=== PATIENT | male | born 1960 | race Caucasian/White ===

== ENCOUNTER → 2017-04-28 | Outpatient (REF) | payer BC ==
[2017-04-28 10:51] LABS: MEAN CORPUSCULAR HEMOGLOBIN 29.2 pg (27.0-33.0); MEAN CORPUSCULAR HGB CONC 33.6 g/dl (32.0-36.5); MEAN CORPUSCULAR VOLUME 86.9 fl (80.0-96.0); PLATELET COUNT, AUTOMATED 177 10^3/uL (150-450); WHITE BLOOD COUNT 6.6 10^3/uL (4.0-10.0)
[2017-04-28 11:14] LABS: ALBUMIN 4.2 GM/DL (3.2-5.2); ALBUMIN/GLOBULIN RATIO 1.35 (1.00-1.93); ALKALINE PHOSPHATASE 59 U/L (45-117); ALT/SGPT 31 U/L (12-78); ANION GAP 7 MEQ/L (8-16); AST/SGOT 16 U/L (7-37); BILIRUBIN,TOTAL 1.8 MG/DL (0.2-1.0); BLOOD UREA NITROGEN 19 MG/DL (7-18); CALCIUM LEVEL 9.3 MG/DL (8.5-10.1); CARBON DIOXIDE LEVEL 28 MEQ/L (21-32); CHLORIDE LEVEL 107 MEQ/L (98-107); CHOLESTEROL LEVEL 157 MG/DL (<200); CREATININE FOR GFR 0.95 MG/DL (0.70-1.30); GLOMERULAR FILTRATION RATE > 60.0 (>56); GLUCOSE, FASTING 91 MG/DL (70-105); POTASSIUM SERUM 3.8 MEQ/L (3.5-5.1); SODIUM LEVEL 142 MEQ/L (136-145); TOTAL PROTEIN 7.3 GM/DL (6.4-8.2); TRIGLYCERIDES LEVEL 69 MG/DL (<150); URIC ACID 6.7 MG/DL (3.5-7.2)
== END ==
LOC: M SFHCPLAZ 09:40
PROVIDERS: ATTEND Internal Medicine
DX: Z79.899 Other long term (current) drug therapy (principal); E78.00 Pure hypercholesterolemia, unspecified; M10.9 Gout, unspecified

== ENCOUNTER 2018-01-06 07:12 | Day surgery (SDC) | payer BC ==
[2018-01-06] MEDS: NS 1,000 ML IV (07:25)
[2018-01-06] MEDS ORDERED: LIDOCAINE 2% INJ 100 MG/5 ML SDV (FOR ANES.) As Ordered (07:44)
[2018-01-06] MEDS ORDERED: PROPOFOL 200 MG/20 ML VIAL As Ordered (07:44)
== END 2018-01-06 08:52 | disposition home or self-care (01) ==
LOC: M OPP 07:12
DX: Z12.11 Encounter for screening for malignant neoplasm of colon (principal); Z86.010 Personal history of colon polyps; K64.0 First degree hemorrhoids; E78.5 Hyperlipidemia, unspecified; M10.9 Gout, unspecified; Z87.442 Personal history of urinary calculi; Z79.899 Other long term (current) drug therapy; Z80.9 Family history of malignant neoplasm, unspecified
CPT/HCPCS: G0105

== ENCOUNTER → 2018-05-04 | Outpatient (REF) | payer BC ==
[2018-05-04 11:01] LABS: HEMATOCRIT 43.8 % (42.0-52.0); HEMOGLOBIN 15.1 g/dl (13.5-17.5); MEAN CORPUSCULAR HEMOGLOBIN 30.1 pg (27.0-33.0); MEAN CORPUSCULAR HGB CONC 34.5 g/dl (32.0-36.5); MEAN CORPUSCULAR VOLUME 87.4 fl (80.0-96.0); PLATELET COUNT, AUTOMATED 163 10^3/uL (150-450); RED BLOOD COUNT 5.01 10^6/uL (4.30-6.10); RED CELL DISTRIBUTION WIDTH 12.6 % (11.5-14.5); WHITE BLOOD COUNT 5.1 10^3/uL (4.0-10.0)
[2018-05-04 11:28] LABS: ALBUMIN 3.7 GM/DL (3.2-5.2); ALBUMIN/GLOBULIN RATIO 1.09 (1.00-1.93); ALKALINE PHOSPHATASE 55 U/L (45-117); ALT/SGPT 32 U/L (12-78); ANION GAP 9 MEQ/L (8-16); AST/SGOT 19 U/L (7-37); BILIRUBIN,TOTAL 0.5 MG/DL (0.2-1.0); BLOOD UREA NITROGEN 20 MG/DL (7-18); CALCIUM LEVEL 8.5 MG/DL (8.5-10.1); CARBON DIOXIDE LEVEL 25 MEQ/L (21-32); CHLORIDE LEVEL 108 MEQ/L (98-107); CHOLESTEROL LEVEL 189 MG/DL (<200); CHOLESTEROL RISK RATIO 3.436 (<5); CREATININE FOR GFR 0.93 MG/DL (0.70-1.30); GLOMERULAR FILTRATION RATE > 60.0 (>56); GLUCOSE, FASTING 91 MG/DL (70-100); HDL CHOLESTEROL 55 MG/DL (>40); LDL CHOLESTEROL 98 MG/DL (<100); NON-HDL-C 134 MG/DL; PSA SCREENING 4.7 NG/ML (< 4.0); SODIUM LEVEL 142 MEQ/L (136-145); TOTAL PROTEIN 7.1 GM/DL (6.4-8.2); TRIGLYCERIDES LEVEL 179 MG/DL (<150); URIC ACID 6.7 MG/DL (3.5-7.2)
[2018-05-04 11:34] LABS: APPEARANCE, URINE CLEAR (CLEAR); BACTERIA, URINE AUTO NEGATIVE (NEGATIVE); BILIRUBIN, URINE AUTO NEGATIVE (NEGATIVE); BLOOD, URINE BLOOD NEGATIVE (NEGATIVE); CALCIUM OXALATE CRYSTALS SMALL; COLOR, URINE YELLOW (YELLOW); GLUCOSE, URINE (UA) AUTO NEGATIVE (NEGATIVE); KETONE, URINE AUTO NEGATIVE (NEGATIVE); LEUKOCYTE ESTERASE, URINE AUTO NEGATIVE (NEGATIVE); MUCUS, URINE SMALL (NEGATIVE); NITRITE, URINE AUTO NEGATIVE (NEGATIVE); PROTEIN, URINE AUTO NEGATIVE (NEGATIVE); RBC, URINE AUTO 2 /HPF (0-3); SPECIFIC GRAVITY URINE AUTO 1.029 (1.002-1.035); SQUAMOUS EPITHELIAL CELL UR AU 0 /HPF (0-6); UROBILINOGEN, URINE AUTO 0.2 mg/dL (0.0-2.0); WBC, URINE AUTO 3 /HPF (0-3)
== END ==
LOC: M SFHCPLAZ 09:31
DX: Z00.00 Encounter for general adult medical examination without abnormal findings (principal); Z51.81 Encounter for therapeutic drug level monitoring; Z79.899 Other long term (current) drug therapy; E78.00 Pure hypercholesterolemia, unspecified; M10.9 Gout, unspecified; Z87.448 Personal history of other diseases of urinary system; Z12.5 Encounter for screening for malignant neoplasm of prostate; Z86.010 Personal history of colon polyps
CPT/HCPCS: 84550

== ENCOUNTER → 2019-01-13 | Outpatient (CLI) | payer BC ==
[~2019-01-13] MED LIST: CIPR-249 PO; FLOM0.4C39 PO; HYDR-3713 PO; IBUP-1022 PO; MELO15TA28 PO; OXYB5TAB10 PO; PRAV80TA2 PO
[2019-01-13 13:38] LABS: BLOOD UREA NITROGEN 15 MG/DL (7-18); CARBON DIOXIDE LEVEL 30 MEQ/L (21-32); CHLORIDE LEVEL 108 MEQ/L (98-107); CREATININE FOR GFR 0.95 MG/DL (0.70-1.30); GLOMERULAR FILTRATION RATE > 60.0 (>56); GLUCOSE, FASTING 88 MG/DL (70-100); POTASSIUM SERUM 4.1 MEQ/L (3.5-5.1); SODIUM LEVEL 142 MEQ/L (136-145)
[2019-01-13 13:38] LABS: APPEARANCE, URINE CLEAR (CLEAR); BACTERIA, URINE AUTO NEGATIVE (NEGATIVE); BILIRUBIN, URINE AUTO NEGATIVE (NEGATIVE); BLOOD, URINE BLOOD 1+ (NEGATIVE); COLOR, URINE YELLOW (YELLOW); GLUCOSE, URINE (UA) AUTO NEGATIVE (NEGATIVE); KETONE, URINE AUTO NEGATIVE (NEGATIVE); LEUKOCYTE ESTERASE, URINE AUTO NEGATIVE (NEGATIVE); MUCUS, URINE SMALL (NEGATIVE); NITRITE, URINE AUTO NEGATIVE (NEGATIVE); PROTEIN, URINE AUTO NEGATIVE (NEGATIVE); RBC, URINE AUTO 1 /HPF (0-3); SPECIFIC GRAVITY URINE AUTO 1.024 (1.002-1.035); SQUAMOUS EPITHELIAL CELL UR AU 0 /HPF (0-6); UROBILINOGEN, URINE AUTO 0.2 mg/dL (0.0-2.0); WBC, URINE AUTO 4 /HPF (0-3)
[2019-01-14 15:47] LABS: PSA % FREE 20.5 % (.); PSA FREE 0.88 ng/mL; PSA TOTAL 4.3 ng/mL (0.0-4.0)
== END ==
LOC: M SMT 10:47
PROVIDERS: ATTEND Nurse Practitioner Family
DX: R97.20 Elevated prostate specific antigen [PSA] (principal); N20.0 Calculus of kidney; R31.0 Gross hematuria

== ENCOUNTER → 2019-01-25 | Outpatient (CLI) | payer BC ==
[~2019-01-25] MED LIST changes: -CIPR-249 PO; +ISOVUE-370 76% 100ML VIAL (Q9967) As Ordered ONE; -OXYB5TAB10 PO
--- NOTE | 2019-01-25 10:16 | REP ---
CT of the abdomen pelvis without and with IV contrast, without bowel contrast, CT urogram protocol: Comparison is 10/29/2017. On the comparison study there were two bladder calculi, one posteriorly in the midline 11 mm and the other near the left UVJ measuring 6 mm. These calculi are not identified on the study today, however, on the study today there is a 17 mm calculus with irregular margins posteriorly in the dome of the bladder on the left. There are no ureteral calculi. There is a tiny two mm a nonobstructive left renal calculus at the mid pole on image 57, similar to the prior study. There are no right renal calculi. There is a Bosniak type 1 right renal cyst measuring 17 mm anteriorly at the mid pole. This measured 15 mm previously. There are no solid renal masses. There is no hydronephrosis. The previous left hydronephrosis has resolved. The visualized lung bradshaw are unremarkable. The hepatic parenchyma, gallbladder, pancreas, spleen, adrenals, and abdominal aorta are unremarkable. There is no periaortic adenopathy or mass. There is no bowel distension or obstruction. The mesentery is unremarkable. There is wall thickening of the distal transverse colon and descending colon. This is compatible with colitis in the appropriate clinical setting. Pelvis: The patient reportedly has an appendectomy. The prostate appears enlarged. There is no pelvic adenopathy or ascites. Impression: There is a bladder calculus as described. There are no ureteral calculi. There is a tiny nonobstructive left renal calculus, unchanged. There is no hydronephrosis. There is a Bosniak type 1 right renal cyst, unchanged. No solid renal masses are identified. The prostate appears enlarged. There are findings compatible with colitis in the distal transverse colon and descending colon in the appropriate clinical setting. Electronically Signed by Miko Meredith MD 01/25/2019 10:08 A
== END ==
LOC: M RAD 07:18
PROVIDERS: ATTEND Nurse Practitioner Family
DX: N20.0 Calculus of kidney (principal); R31.0 Gross hematuria; N21.0 Calculus in bladder; N28.1 Cyst of kidney, acquired
CPT/HCPCS: 74178; Q9967

== ENCOUNTER → 2019-04-12 | Outpatient (CLI) | payer BC ==
[~2019-04-12] MED LIST changes: -ISOVUE-370 76% 100ML VIAL (Q9967) As Ordered ONE
[2019-04-12 10:37] LABS: APPEARANCE, URINE CLEAR (CLEAR); BACTERIA, URINE AUTO NEGATIVE (NEGATIVE); BASO % 0.6 % (0.0-1.0); BILIRUBIN, URINE AUTO NEGATIVE (NEGATIVE); BLOOD, URINE BLOOD NEGATIVE (NEGATIVE); COLOR, URINE YELLOW (YELLOW); EOS # 0.2 10^3/uL (0.0-0.5); EOS % 3.5 % (0.0-3.0); GLUCOSE, URINE (UA) AUTO NEGATIVE (NEGATIVE); HEMATOCRIT 46.3 % (42.0-52.0); HEMOGLOBIN 15.3 g/dl (13.5-17.5); KETONE, URINE AUTO NEGATIVE (NEGATIVE); LEUKOCYTE ESTERASE, URINE AUTO NEGATIVE (NEGATIVE); LYMPH # 1.5 10^3/uL (1.5-5.0); LYMPH % 30.2 % (24.0-44.0); MEAN CORPUSCULAR HEMOGLOBIN 29.8 pg (27.0-33.0); MEAN CORPUSCULAR VOLUME 90.1 fl (80.0-96.0); MONO # 0.4 10^3/uL (0.0-0.8); MONO % 8.9 % (0.0-5.0); MUCUS, URINE SMALL (NEGATIVE); NEUTROPHILS # 2.7 10^3/uL (1.5-8.5); NEUTROPHILS % 56.4 % (36.0-66.0); NITRITE, URINE AUTO NEGATIVE (NEGATIVE); PLATELET COUNT, AUTOMATED 158 10^3/uL (150-450); PROTEIN, URINE AUTO NEGATIVE (NEGATIVE); RBC, URINE AUTO 2 /HPF (0-3); RED BLOOD COUNT 5.14 10^6/uL (4.30-6.10); SPECIFIC GRAVITY URINE AUTO 1.021 (1.002-1.035); SQUAMOUS EPITHELIAL CELL UR AU 0 /HPF (0-6); UROBILINOGEN, URINE AUTO 0.2 mg/dL (0.0-2.0); WBC, URINE AUTO 0 /HPF (0-3); WHITE BLOOD COUNT 4.8 10^3/uL (4.0-10.0)
[2019-04-12 10:47] LABS: INR 1.01
[2019-04-12 10:48] LABS: PARTIAL THROMBOPLASTIN TIME 33.4 SECONDS (25.0-38.4)
[2019-04-12 11:01] LABS: BLOOD UREA NITROGEN 17 MG/DL (7-18); CALCIUM LEVEL 8.9 MG/DL (8.5-10.1); CARBON DIOXIDE LEVEL 29 MEQ/L (21-32); CHLORIDE LEVEL 107 MEQ/L (98-107); CREATININE FOR GFR 0.95 MG/DL (0.70-1.30); GLOMERULAR FILTRATION RATE > 60.0 (>56); GLUCOSE, FASTING 85 MG/DL (70-100); SODIUM LEVEL 144 MEQ/L (136-145)
--- NOTE | 2019-04-12 11:03 | REP ---
Two-view chest: New 04/12/2019. Indication: Dyspnea. Comparison: None. Findings: The lungs are clear. There is no pleural effusion or pneumothorax. The cardiomediastinal silhouette is unremarkable. Very minimal dextroscoliosis of the thoracic spine is present which is likely positional. Impression: No acute cardiopulmonary process. Electronically Signed by Cristóbal Leahy DO 04/12/2019 10:55 A
--- NOTE | 2019-04-12 22:12 | ECGEPIP ---
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
== END ==
LOC: M LAB 09:48
PROVIDERS: ATTEND Urology
DX: R31.0 Gross hematuria (principal)

== ENCOUNTER 2019-04-20 10:41 | Day surgery (SDC) | payer BC ==
[~2019-04-20] VITALS: Ht 180.3 cm; Wt 96.7 kg
[~2019-04-20 10:41] MED LIST changes: +GENTAMICIN 100 MG in IV 1 EA IV ONE; +LR 1,000 ML IV ONE
[2019-04-20] MEDS ORDERED: LIDOCAINE 2% INJ 100 MG/5 ML SDV (FOR ANES.) As Ordered ONE (11:58)
[2019-04-20] MEDS ORDERED: PROPOFOL 200 MG/20 ML VIAL As Ordered ONE (11:58)
[2019-04-20] MEDS ORDERED: ONDANSETRON 4MG/2ML VIAL (J2405) As Ordered ONE (11:58)
[2019-04-20] MEDS ORDERED: dexameTHASONE 4 MG/ML 1ML VIAL (J1100) As Ordered ONE (11:58)
[2019-04-20] MEDS ORDERED: fentaNYL 100 MCG/2 ML INJECTION (J3010) As Ordered ONE (11:58)
[2019-04-20] MEDS ORDERED: MIDAZOLAM INJ 2 MG/2 ML VIAL (J2250) As Ordered ONE (11:59)
[2019-04-20] MEDS ORDERED: KETOROLAC 60 MG/2 ML VIAL (J1885) As Ordered ONE (13:45)
[2019-04-20] MEDS ORDERED: ACETAMINOPHEN 1000MG 100ML IV BTL (OFIRMEV) (J0131 PER 10MG) As Ordered ONE (13:46)
[2019-04-20] MEDS ORDERED: FUROSEMIDE 100 MG/10 ML VIAL (J1940) As Ordered ONE (13:52)
[2019-04-20] MEDS ORDERED: fentaNYL 100 MCG/2 ML INJECTION (J3010) IV PRN (14:15)
[2019-04-20] MEDS ORDERED: PERCOCET 5MG/325MG TAB PO PRN (14:15)
[2019-04-20] MEDS ORDERED: LR 1,000 ML IV SCH (14:15)
[2019-04-20] MEDS ORDERED: ONDANSETRON 4MG/2ML VIAL (J2405) IV PRN ×2 (14:15→19:00)
[2019-04-20] MEDS ORDERED: HYDROMORPHONE HCL 0.5 MG/ 0.5 ML SYRINGE (J1170 PER 1) IV PRN (14:15)
[2019-04-20] MEDS ORDERED: ACETAMINOPHEN TAB 650MG DOSE (2X325MG) PO PRN ×2 (15:15→19:00)
--- NOTE | 2019-04-20 15:21 | RO ---
DATE OF PROCEDURE: 04/20/2019 PREOPERATIVE DIAGNOSIS: Bladder stone. POSTOPERATIVE DIAGNOSIS: Bladder stone. OPERATIVE PROCEDURE: Cystoscopy, laser cystolitholapaxy. SURGEON: Giles Elias MD E COMMERCE MANAGER: None. ANESTHESIA: General. OPERATIVE INDICATIONS: This is a 58-year-old male who was found to have a large angel bladder stone on recent office cystoscopy. He was brought to the operating room today for treatment. DESCRIPTION OF OPERATION: The patient was brought to the operating room and general anesthesia was induced. Prophylactic antibiotics were infused. He was then placed in the dorsal lithotomy position and prepped and draped in the usual sterile fashion. At this point, a resectoscope was inserted into the urethral meatus and advanced to the bladder using the visual obturator. Once inside the bladder of note the patient had a very large prostate with a large median lobe. Also there was an approximately 4 cm angel bladder stone. I then utilized a 1000 micron laser fiber to fragment the stone into several smaller pieces. Once this stone was completely fragmented, I used an [employer] evacuator to evacuate all the stone fragments from the bladder. After confirming all the fragments had been removed, the resectoscope was taken out and then an #18-Malay Lee catheter was inserted into the bladder. The balloon was filled with 10 mL of sterile water and the catheter was connected to gravity drainage. This marked the conclusion of the procedure. The patient was then taken out of the dorsal lithotomy position, awakened from anesthesia and transported to the recovery room in stable condition. ESTIMATED BLOOD LOSS: 10 mL. COMPLICATIONS: None. SPECIMENS: Bladder stone fragments. PLAN: The patient will have his catheter removed before he goes home. He will followup in clinic in a few weeks for postoperative visit. Also of note the patient has an elevated PSA which I suspect is related to his large stone. We should recheck his PSA in 6 weeks to see if it is going down to normal range now that the stone is gone. RHEA
[2019-04-20] MEDS ORDERED: LIDOCAINE 2% 5ML JELLY UROJET As Ordered ONE (18:09)
[2019-04-20] MEDS ORDERED: PERCOCET 5MG/325MG TAB As Ordered ONE (18:10)
[2019-04-20] MEDS ORDERED: PERCOCET 5MG/325MG TAB PO ONE (18:45)
[2019-04-20] MEDS ORDERED: NS 1,000 ML IV SCH (18:54)
[2019-04-20 20:00] VITALS: BP 154/96
[2019-04-20 21:00] VITALS: BP 134/70
[2019-04-20] MEDS ORDERED: TAMSULOSIN 0.4 MG CAP PO SCH (21:00)
[2019-04-20] MEDS ORDERED: PRAVASTATIN 20 MG TAB PO SCH (21:00)
[2019-04-20 22:00] VITALS: BP 124/74
[2019-04-20 23:00] VITALS: BP 124/61
[2019-04-21] VITALS: BP 133/64
[2019-04-21 06:00] VITALS: BP 140/85
[2019-04-21] MEDS ORDERED: CIPROFLOXACIN 500 MG TAB PO SCH (06:00)
--- NOTE | 2019-04-21 08:27 | IPNPDOC ---
Subjective Review oF Systems Chief Complaint The patient is a 58-year-old male admitted with a reason for visit of Elevated Prostate Specific Antigen, Bladder Stone. Events since Last Encounter No acute events o/n. Denies pain. His catheter drained fine o/n. No f/c/ns. Objective Physical Examination General Exam: Alert, Cooperative, No Acute Distress ABDOMEN EXAM: Soft Psych Exam: Mental status NL, Mood NL Other physical findings catheter draining pink urine Vital Signs/I&O Vital Signs Date Time Temp Pulse Resp B/P (MAP) Pulse Ox O2 Delivery O2 Flow Rate FiO2 04/21/19 06:00 97.4 63 16 140/85 (103) 98 Room Air I&O- Last 24 Hours up to 6 AM 04/21/19 06:00 Intake Total 2060 ml Output Total 2460 ml Balance -400 ml Laboratory Data Labs 24H Laboratory Tests 2 04/20/19 13:55: Assessment/Plan Date Seen The patient was seen on 04/21/19. Patient Summary This is a 58 y/o M POD1 s/p laser cystolitholapaxy, admitted o/n for hematuria. The hematuria is much improved this morning. Plan/VTE VTE Prophylaxis Ordered?: Yes VTE Exclusion Mechanical Proph: N/A:VTE Prophy Ordered Plan/Urinary Catheter Reason for insertion/continuin: Acute obstruct/retention Plan - catheter to gravity drainage - encourage fluids - flomax - regular diet - discharge home w/ catheter in place w/ plan for f/u next week for catheter removal and ROSLYN PEREZ MD Apr 21, 2019 08:27
[2019-04-21] MEDS ORDERED: FLOM0.4C39 PO (08:32)
[2019-04-21] MEDS ORDERED: CIPR-249 PO (08:32)
== END 2019-04-21 09:48 | disposition home or self-care (01) ==
LOC: M SDC 10:41 → M MS4PR 20:00 → M SDC 04-21 09:48
PROVIDERS: ATTEND Urology
DX: N21.0 Calculus in bladder (principal); R97.20 Elevated prostate specific antigen [PSA]; N40.1 Benign prostatic hyperplasia with lower urinary tract symptoms; R39.15 Urgency of urination; M10.9 Gout, unspecified; E78.00 Pure hypercholesterolemia, unspecified; Z79.899 Other long term (current) drug therapy
CPT/HCPCS: 52318; 82360; 88300; C1769; J0131; J1100; J1580; J1885; J1940; J2250; J2405; J3010

== ENCOUNTER 2019-04-23 15:12 | Emergency (ER) | payer BC ==
[~2019-04-23] VITALS: Ht 180.3 cm; Wt 97.9 kg
[~2019-04-23 15:12] MED LIST changes: +CIPR-249 PO; -GENTAMICIN 100 MG in IV 1 EA IV ONE; -LR 1,000 ML IV ONE
[2019-04-23] MEDS ORDERED: OXYB5TAB10 PO (16:56)
[2019-04-23] MEDS ORDERED: oxyBUTYnin 5 MG TAB PO ONE (17:00)
[2019-04-23 17:44] VITALS: BP 150/95
== END 2019-04-23 17:45 | disposition home or self-care (01) ==
LOC: M ED 15:12
DX: T83.031A Leakage of indwelling urethral catheter, initial encounter (principal); E78.00 Pure hypercholesterolemia, unspecified; Z87.442 Personal history of urinary calculi; Z79.899 Other long term (current) drug therapy

== ENCOUNTER → 2019-05-03 | Outpatient (REF) | payer BC ==
[~2019-05-03] MED LIST changes: +OXYB5TAB10 PO
[2019-05-03 14:56] LABS: APPEARANCE, URINE CLEAR (CLEAR); BACTERIA, URINE AUTO NEGATIVE (NEGATIVE); BILIRUBIN, URINE AUTO NEGATIVE (NEGATIVE); BLOOD, URINE BLOOD 1+ (NEGATIVE); CALCIUM OXALATE CRYSTALS SMALL; COLOR, URINE YELLOW (YELLOW); GLUCOSE, URINE (UA) AUTO NEGATIVE (NEGATIVE); KETONE, URINE AUTO NEGATIVE (NEGATIVE); LEUKOCYTE ESTERASE, URINE AUTO NEGATIVE (NEGATIVE); MUCUS, URINE SMALL (NEGATIVE); NITRITE, URINE AUTO NEGATIVE (NEGATIVE); PROTEIN, URINE AUTO NEGATIVE (NEGATIVE); RBC, URINE AUTO 1 /HPF (0-3); SPECIFIC GRAVITY URINE AUTO 1.027 (1.002-1.035); SQUAMOUS EPITHELIAL CELL UR AU 0 /HPF (0-6); UROBILINOGEN, URINE AUTO 0.2 mg/dL (0.0-2.0); WBC, URINE AUTO 2 /HPF (0-3)
== END ==
LOC: M SMT 13:13
PROVIDERS: ATTEND Nurse Practitioner Women's Health
DX: N21.0 Calculus in bladder (principal)

== ENCOUNTER → 2019-07-19 | Outpatient (REF) | payer BC ==
[2019-07-19 12:35] LABS: HEMATOCRIT 47.1 % (42.0-52.0); HEMOGLOBIN 15.2 g/dl (13.5-17.5); MEAN CORPUSCULAR HEMOGLOBIN 29.3 pg (27.0-33.0); MEAN CORPUSCULAR HGB CONC 32.3 g/dl (32.0-36.5); MEAN CORPUSCULAR VOLUME 90.9 fl (80.0-96.0); PLATELET COUNT, AUTOMATED 168 10^3/uL (150-450); RED BLOOD COUNT 5.18 10^6/uL (4.30-6.10); WHITE BLOOD COUNT 5.3 10^3/uL (4.0-10.0)
[2019-07-19 13:03] LABS: ALBUMIN 4.3 GM/DL (3.2-5.2); ALT/SGPT 36 U/L (12-78); BLOOD UREA NITROGEN 16 MG/DL (7-18); CALCIUM LEVEL 9.1 MG/DL (8.5-10.1); CARBON DIOXIDE LEVEL 28 MEQ/L (21-32); CHLORIDE LEVEL 107 MEQ/L (98-107); CHOLESTEROL LEVEL 172 MG/DL (<200); CHOLESTEROL RISK RATIO 2.915 (<5); CREATININE FOR GFR 0.82 MG/DL (0.70-1.30); GLOMERULAR FILTRATION RATE > 60.0 (>56); GLUCOSE, FASTING 84 MG/DL (70-100); HDL CHOLESTEROL 59 MG/DL (>40); LDL CHOLESTEROL 86 MG/DL (<100); NON-HDL-C 113 MG/DL; POTASSIUM SERUM 4.2 MEQ/L (3.5-5.1); PROSTATIC SPECIFIC AG MONITOR 4.57 NG/ML (< 4.00); SODIUM LEVEL 142 MEQ/L (136-145); TOTAL PROTEIN 7.3 GM/DL (6.4-8.2); TRIGLYCERIDES LEVEL 136 MG/DL (<150); URIC ACID 6.8 MG/DL (3.5-7.2)
== END ==
LOC: M SFHCPLAZ 10:49
PROVIDERS: ATTEND Internal Medicine
DX: Z00.00 Encounter for general adult medical examination without abnormal findings (principal); E78.00 Pure hypercholesterolemia, unspecified; M10.9 Gout, unspecified; N20.0 Calculus of kidney; R97.20 Elevated prostate specific antigen [PSA]; Z79.899 Other long term (current) drug therapy

== ENCOUNTER → 2019-08-30 | Outpatient (CLI) | payer BC ==
--- NOTE | 2019-08-30 12:03 | REPPI ---
Prostate sonography: History: Elevated PSA. Sonographic findings: Trans rectal prostate sonography demonstrates unremarkable seminal vesicles. Prostate gland is heterogeneously enlarged with calcifications and cystic changes noted. Glandular dimensions are measured at by 5.0 x 4.6 x 5.2 cm with a calculated glandular volume of 61.6 ml. Transrectal sonographic guidance is provided to Dr. Elias who performed trans rectal ultrasound guided needle biopsy procedure . Electronically Signed by Patrick Patel MD 08/30/2019 11:55 A
== END ==
LOC: M SMT PRO 10:25
PROVIDERS: ATTEND Urology
DX: R97.20 Elevated prostate specific antigen [PSA] (principal)
CPT/HCPCS: 76872; 76942; G0416

== ENCOUNTER → 2020-04-03 | Outpatient (REF) | payer BC ==
[2020-04-05 23:07] LABS: PSA % FREE 18.7 % (.); PSA FREE 0.88 ng/mL; PSA TOTAL 4.7 ng/mL (0.0-4.0)
== END ==
LOC: M PLALAB 16:52
PROVIDERS: ATTEND Urology
DX: R97.20 Elevated prostate specific antigen [PSA] (principal)

== ENCOUNTER → 2021-04-30 | Outpatient (REF) | payer OTHER | LOC: M SFHCPLAZ 11:11 | PROVIDERS: ATTEND Internal Medicine | DX: Z00.00 Encounter for general adult medical examination without abnormal findings (principal); Z23 Encounter for immunization; E78.00 Pure hypercholesterolemia, unspecified; R97.20 Elevated prostate specific antigen [PSA]; M10.9 Gout, unspecified; Z11.59 Encounter for screening for other viral diseases ==

== ENCOUNTER → 2023-04-21 | Outpatient (CLI) | payer OTHER ==
[~2023-04-21] MED LIST changes: -OXYB5TAB10 PO; +OXYB5TAB11 PO
[2023-04-21 13:32] LABS: HEMOGLOBIN 15.2 g/dl (13.5-17.5); MEAN CORPUSCULAR HEMOGLOBIN 30.2 pg (27.0-33.0); MEAN CORPUSCULAR HGB CONC 33.8 g/dl (32.0-36.5); MEAN CORPUSCULAR VOLUME 89.3 fl (80.0-96.0); PLATELET COUNT, AUTOMATED 172 10^3/uL (150-450); RED BLOOD COUNT 5.04 10^6/uL (4.30-6.10); WHITE BLOOD COUNT 5.3 10^3/uL (4.0-10.0)
[2023-04-21 14:02] LABS: PROSTATIC SPECIFIC AG MONITOR 4.54 NG/ML (< 4.00); URIC ACID 7.4 MG/DL (3.7-9.2)
[2023-04-21 14:06] LABS: ALKALINE PHOSPHATASE 59 U/L (46-116); ALT/SGPT 27 U/L (7.0-40); AST/SGOT 18 U/L (<34); BLOOD UREA NITROGEN 17 MG/DL (9-23); CALCIUM LEVEL 9.2 MG/DL (8.3-10.6); CARBON DIOXIDE LEVEL 28 MMOL/L (20-31); CHLORIDE LEVEL 106 MMOL/L (98-107); CHOLESTEROL LEVEL 191 MG/DL (<200); CHOLESTEROL RISK RATIO 3.24 (<5); CREATININE FOR GFR 0.91 MG/DL (0.70-1.30); GLOMERULAR FILTRATION RATE > 60.0 (>49); GLUCOSE, FASTING 83 MG/DL (74-106); HDL CHOLESTEROL 58.9 MG/DL (>40); LDL CHOLESTEROL 105.3 MG/DL (<100); NON-HDL-C 132.1 MG/DL; POTASSIUM SERUM 4.3 MMOL/L (3.5-5.1); SODIUM LEVEL 141 MMOL/L (136-145); TOTAL PROTEIN 7.2 G/DL (5.7-8.2); TRIGLYCERIDES LEVEL 134 MG/DL (<150)
== END ==
LOC: M PLALAB 11:37
PROVIDERS: ATTEND Nurse Practitioner Adult Health
DX: E78.00 Pure hypercholesterolemia, unspecified (principal); R97.20 Elevated prostate specific antigen [PSA]; M10.9 Gout, unspecified

== ENCOUNTER → 2023-10-20 | Outpatient (REF) | payer OTHER ==
[~2023-10-20] MED LIST changes: -OXYB5TAB11 PO; +OXYB5TAB14 PO
[2023-10-22 17:08] LABS: PSA % FREE 20.5 % (.); PSA FREE 1.25 ng/mL; PSA TOTAL 6.1 ng/mL (0.0-4.0)
== END ==
LOC: M LABWUC 16:43
PROVIDERS: ATTEND Urology
DX: R97.20 Elevated prostate specific antigen [PSA] (principal)

== ENCOUNTER → 2024-09-30 | Outpatient (CLI) | payer BC ==
[~2024-09-30] MED LIST changes: -FLOM0.4C39 PO; +TAMS-18 PO
[2024-10-03 12:23] LABS: PSA FREE 1.3 ng/mL; PSA TOTAL 7.3 ng/mL (< OR = 4.0)
== END ==
LOC: M PLALAB 09:39
PROVIDERS: ATTEND Urology
DX: R97.20 Elevated prostate specific antigen [PSA] (principal)

== ENCOUNTER → 2024-10-21 | Outpatient (CLI) | payer BC ==
[~2024-10-21] MED LIST changes: +PROHANCE 279.3MG/ML 15ML VIAL ONE; +PROHANCE 279.3MG/ML 5ML VIAL ONE
== END ==
LOC: M PLAIMG 09:14
PROVIDERS: ATTEND Urology
DX: R97.20 Elevated prostate specific antigen [PSA] (principal); N42.89 Other specified disorders of prostate
CPT/HCPCS: 72197; A9576

== ENCOUNTER 2025-01-04 08:17 | Day surgery (SDC) | payer BC ==
[~2025-01-04] VITALS: Ht 180.3 cm; Wt 97.5 kg
[~2025-01-04 08:17] MED LIST changes: +LIDOCAINE 2% 100 MG/5 ML SDV (FOR ANES.) As Ordered ONE; -PRAV80TA2 PO; +PRAV80TA75 PO; -PROHANCE 279.3MG/ML 15ML VIAL ONE; -PROHANCE 279.3MG/ML 5ML VIAL ONE
[2025-01-04 09:51] VITALS: TEMP 98
[2025-01-04 10:15] VITALS: BP 132/87; O2SAT 95
== END 2025-01-04 10:16 | disposition home or self-care (01) ==
LOC: M OPP 08:17
PROVIDERS: ATTEND Internal Medicine Gastroenterology
DX: Z12.11 Encounter for screening for malignant neoplasm of colon (principal); D12.0 Benign neoplasm of cecum; K64.0 First degree hemorrhoids; K57.30 Diverticulosis of large intestine without perforation or abscess without bleeding; Z86.0100 Personal history of colon polyps, unspecified; Z79.899 Other long term (current) drug therapy

== ENCOUNTER 2025-01-22 07:07 | Emergency (ER) | payer BC ==
[~2025-01-22] VITALS: Ht 180.3 cm; Wt 101.3 kg
[~2025-01-22 07:07] MED LIST changes: -LIDOCAINE 2% 100 MG/5 ML SDV (FOR ANES.) As Ordered ONE
[2025-01-22 07:38] LABS: KETONE, URINE AUTO RFX NEGATIVE (NEGATIVE); LEUKOCYTE ESTERASE UR AUTO RFX NEGATIVE (NEGATIVE); MUCUS, URINE RFX SMALL (NEGATIVE); NITRITE, URINE AUTO RFX NEGATIVE (NEGATIVE); RBC, URINE AUTO RFX 1 /HPF (0-3); SQUAM EPITHELIAL CELL UR AURFX 0 /HPF (0-6); WBC, URINE AUTO RFX 1 /HPF (0-3)
[2025-01-22 11:09] LABS: CALCIUM LEVEL 9.2 MG/DL (8.3-10.6); CARBON DIOXIDE LEVEL 22.0 MMOL/L (20-31); CHLORIDE LEVEL 98.0 MMOL/L (98-107); CREATININE FOR GFR 1.38 MG/DL (0.70-1.30); GLOMERULAR FILTRATION RATE 57.8 (>49); POTASSIUM SERUM 4.1 MMOL/L (3.5-5.1); SODIUM LEVEL 133.0 MMOL/L (136-145)
[2025-01-22] MEDS: LIDOCAINE 2% 5 ML JELLY UROJET TOP ONE (11:21)
[2025-01-22] MEDS ORDERED: TAMS-18 PO (11:45)
[2025-01-22 12:00] VITALS: BP 146/80; TEMP 98.7; O2SAT 97
== END 2025-01-22 12:15 | disposition home or self-care (01) ==
LOC: M ED 07:07
DX: R33.9 Retention of urine, unspecified (principal); N40.1 Benign prostatic hyperplasia with lower urinary tract symptoms; F10.10 Alcohol abuse, uncomplicated; Z90.89 Acquired absence of other organs; Z87.442 Personal history of urinary calculi; Z79.899 Other long term (current) drug therapy

== ENCOUNTER → 2025-02-28 | Outpatient (CLI) | payer BC ==
[~2025-02-28] MED LIST changes: -IBUP-1022 PO; +IBUP600T42 PO
[2025-02-28 11:08] LABS: PLATELET COUNT, AUTOMATED 201 10^3/uL (150-450)
[2025-02-28 11:34] LABS: CALCIUM LEVEL 9.3 MG/DL (8.3-10.6); CARBON DIOXIDE LEVEL 27.0 MMOL/L (20-31); CHLORIDE LEVEL 106.0 MMOL/L (98-107); CREATININE FOR GFR 1.1 MG/DL (0.70-1.30); GLOMERULAR FILTRATION RATE 75.9 (>49); POTASSIUM SERUM 4.2 MMOL/L (3.5-5.1); SODIUM LEVEL 141.0 MMOL/L (136-145)
== END ==
LOC: M RAD 10:25
PROVIDERS: ATTEND Urology
DX: N40.1 Benign prostatic hyperplasia with lower urinary tract symptoms (principal)

== ENCOUNTER → 2025-03-02 | Outpatient (REF) | payer BC ==
[2025-03-02 13:21] LABS: APPEARANCE, URINE CLOUDY (CLEAR); BACTERIA, URINE AUTO 2+ (NEGATIVE); BILIRUBIN, URINE AUTO NEGATIVE (NEGATIVE); BLOOD, URINE BLOOD 3+ (NEGATIVE); GLUCOSE, URINE (UA) AUTO NEGATIVE (NEGATIVE); KETONE, URINE AUTO NEGATIVE (NEGATIVE); LEUKOCYTE ESTERASE, URINE AUTO 2+ (NEGATIVE); MUCUS, URINE SMALL (NEGATIVE); NITRITE, URINE AUTO POSITIVE (NEGATIVE); PROTEIN, URINE AUTO 2+ mg/dL (NEGATIVE); RBC, URINE AUTO TNTC /HPF (0-3); SPECIFIC GRAVITY URINE AUTO 1.023 (1.002-1.035); SQUAMOUS EPITHELIAL CELL UR AU 0 /HPF (0-6); UROBILINOGEN, URINE AUTO 0.2 mg/dL (0.0-2.0); WBC, URINE AUTO TNTC /HPF (0-3)
== END ==
LOC: M SMT 12:47
PROVIDERS: ATTEND Urology
DX: Z01.818 Encounter for other preprocedural examination (principal); N39.0 Urinary tract infection, site not specified; N40.1 Benign prostatic hyperplasia with lower urinary tract symptoms

== ENCOUNTER 2025-03-10 08:34 | Day surgery (SDC) | payer BC ==
[~2025-03-10] VITALS: Ht 180.3 cm; Wt 94.7 kg
[2025-03-10] MEDS: LR 1,000 ML IV SCH (08:50)
[2025-03-10] MEDS ORDERED: MIDAZOLAM INJ 2 MG/2 ML VIAL As Ordered ONE (08:57)
[2025-03-10] MEDS ORDERED: LIDOCAINE 2% 100 MG/5 ML SDV (FOR ANES.) As Ordered ONE (08:59)
[2025-03-10] MEDS ORDERED: dexAMETHasone 4 MG/ML 1 ML VIAL As Ordered ONE (09:00)
[2025-03-10] MEDS ORDERED: ONDANSETRON 4MG 2ML VIAL As Ordered ONE (09:00)
[2025-03-10] MEDS ORDERED: ACETAMINOPHEN 1000MG/100ML IV BAG As Ordered ONE (09:02)
[2025-03-10] MEDS: CEFEPIME 1 GM VIAL As Ordered ONE (09:45)
[2025-03-10] MEDS: CEFEPIME HCL 1 GM in DEXTROSE 5% (D5W) ADV/MINI-BAG 50 ML IV ONE (09:47)
[2025-03-10] MEDS ORDERED: PHENYLephrine 500MCG 5ML (100MCG/ML) SYRINGE As Ordered ONE (10:27)
[2025-03-10] MEDS ORDERED: HYDROmorphone HCL 2 MG/ML 1 ML VIAL As Ordered ONE (10:46)
[2025-03-10] MEDS ORDERED: FUROSEMIDE 100 MG/10 ML VIAL As Ordered ONE (12:46)
[2025-03-10] MEDS ORDERED: MORPHINE 4 MG/ML 1 ML VIAL IV PRN (13:10)
[2025-03-10] MEDS: ONDANSETRON 4MG 2ML VIAL IV PRN (13:58)
[2025-03-10 15:10] VITALS: BP 141/80; TEMP 98.6; O2SAT 99
== END 2025-03-10 15:25 | disposition home or self-care (01) ==
LOC: M SDC 08:34
PROVIDERS: ATTEND Urology
DX: N40.1 Benign prostatic hyperplasia with lower urinary tract symptoms (principal); R33.8 Other retention of urine; N39.498 Other specified urinary incontinence; Z79.899 Other long term (current) drug therapy; E78.00 Pure hypercholesterolemia, unspecified; M10.9 Gout, unspecified; Z90.49 Acquired absence of other specified parts of digestive tract
CPT/HCPCS: 52601; J0131; J0692; J1100; J1171; J1938; J2250; J2371; J2405; J3010